=== PATIENT | male | born 1995 | race African-American/Black ===

== ENCOUNTER 2018-04-12 17:40 | Emergency (ER) | payer OTHER ==
[~2018-04-12] VITALS: Ht 170.2 cm; Wt 59.1 kg
[2018-04-12 20:43] VITALS: BP 116/64
== END 2018-04-12 20:50 | disposition home or self-care (01) ==
LOC: M ED 17:40
DX: L72.3 Sebaceous cyst (principal); F17.210 Nicotine dependence, cigarettes, uncomplicated

== ENCOUNTER → 2018-04-28 | Outpatient (CLI) | payer OTHER ==
[2018-04-28 17:29] LABS: HEMATOCRIT 44.8 % (42.0-52.0); HEMOGLOBIN 15.2 g/dl (13.5-17.5); MEAN CORPUSCULAR HEMOGLOBIN 28.5 pg (27.0-33.0); MEAN CORPUSCULAR HGB CONC 33.9 g/dl (32.0-36.5); MEAN CORPUSCULAR VOLUME 83.9 fl (80.0-96.0); PLATELET COUNT, AUTOMATED 278 10^3/uL (150-450); RED BLOOD COUNT 5.34 10^6/uL (4.30-6.10); WHITE BLOOD COUNT 7.8 10^3/uL (4.0-10.0)
[2018-04-28 17:40] LABS: INR 1.02; PROTHROMBIN TIME 13.5 SECONDS (12.1-14.4)
[2018-04-28 17:41] LABS: PARTIAL THROMBOPLASTIN TIME 31.2 SECONDS (25.4-37.6)
[2018-04-28 17:44] LABS: BLOOD UREA NITROGEN 9 MG/DL (7-18); CALCIUM LEVEL 9.1 MG/DL (8.5-10.1); CARBON DIOXIDE LEVEL 29 MEQ/L (21-32); CHLORIDE LEVEL 104 MEQ/L (98-107); CREATININE FOR GFR 0.98 MG/DL (0.70-1.30); GLOMERULAR FILTRATION RATE > 60.0 (>60); GLUCOSE, FASTING 76 MG/DL (70-100); POTASSIUM SERUM 4.1 MEQ/L (3.5-5.1); SODIUM LEVEL 142 MEQ/L (136-145)
== END ==
LOC: M SMT 14:50
PROVIDERS: ATTEND Urology
DX: Z01.818 Encounter for other preprocedural examination (principal); L72.9 Follicular cyst of the skin and subcutaneous tissue, unspecified
CPT/HCPCS: 36415; 80048; 85027; 85610; 85730; G0463

== ENCOUNTER 2018-05-04 10:48 | Day surgery (SDC) | payer OTHER ==
[~2018-05-04] VITALS: Ht 172.7 cm; Wt 59.0 kg
[~2018-05-04 10:48] MED LIST: BACITRACIN OINT 30GM As Ordered ONE
[2018-05-04] MEDS ORDERED: MIDAZOLAM INJ 2 MG/2 ML VIAL (J2250) As Ordered ONE (13:37)
[2018-05-04] MEDS ORDERED: PROPOFOL 200 MG/20 ML VIAL As Ordered ONE ×2 (13:37→14:18)
[2018-05-04] MEDS ORDERED: fentaNYL 100 MCG/2 ML INJECTION (J3010) As Ordered ONE ×2 (13:37→13:41)
[2018-05-04] MEDS ORDERED: LIDOCAINE 2% INJ 100 MG/5 ML SDV (FOR ANES.) As Ordered ONE (13:37)
[2018-05-04] MEDS ORDERED: dexameTHASONE 4 MG/ML 1ML VIAL (J1100) As Ordered ONE (13:41)
[2018-05-04] MEDS ORDERED: ONDANSETRON 4MG/2ML VIAL (J2405) As Ordered ONE (13:41)
[2018-05-04] MEDS ORDERED: LIDOCAINE 1% SDV INJ 30 ML VIAL As Ordered ONE (14:01)
[2018-05-04] MEDS ORDERED: BUPIVACAINE HCL 0.25% 30 ML VIAL As Ordered ONE (14:01)
[2018-05-04] MEDS ORDERED: PHENYLephrine HCL 500 MCG/5 ML (100MCG/ML) SYRINGE (J2370) As Ordered ONE (14:39)
[2018-05-04] MEDS ORDERED: ePHEDrine SULFATE 25 MG/5 ML(5MG/ML) SYRINGE As Ordered ONE (15:03)
[2018-05-04] MEDS ORDERED: fentaNYL 100 MCG/2 ML INJECTION (J3010) IV PRN (16:15)
[2018-05-04] MEDS ORDERED: HYDROMORPHONE HCL 0.5 MG/ 0.5 ML SYRINGE (J1170 PER 1) IV PRN (16:15)
[2018-05-04] MEDS ORDERED: PERCOCET 5MG/325MG TAB PO PRN ×2 (16:15)
[2018-05-04] MEDS ORDERED: LR 1,000 ML IV SCH (16:45)
[2018-05-04 17:34] VITALS: BP 140/71
--- NOTE | 2018-05-05 08:22 | RO ---
DATE OF PROCEDURE: 05/04/2018 PREPROCEDURE DIAGNOSIS: Penile and scrotal cysts. POSTPROCEDURE DIAGNOSIS: Penile and scrotal cysts. PROCEDURE: Excision of penile and scrotal cysts. SURGEON: Joey Amin MD SILK PRESSER: None. ANESTHESIA: General. OPERATIVE INDICATIONS: This is a 22-year-old male who presented to our office with complaint of subcutaneous penile and scrotal cysts. He wished to have them all removed, and he was therefore brought to the operating room today for that procedure. DESCRIPTION OF PROCEDURE: The patient was brought to the operating room and general anesthesia was induced. Prophylactic antibiotics were infused. He was then placed in supine position and prepped and draped in the usual sterile fashion. Of note, the patient had approximately 10 subcutaneous cysts measuring between 0.5 cm to 1.0 cm in size. Each of these cysts were then carefully dissected out from the subcutaneous tissues and then excised. Once all of them were completely excised, each incision was closed with interrupted #2-0 chromic sutures. Of note, these cysts appeared to likely be sebaceous. Once all the sutures were placed, dressings were applied and this ramon conclusion of procedures. The patient was then awakened from anesthesia and transported to the recovery room in stable condition. Estimated blood loss was 10 mL. Complications: None. Specimens: Penile and scrotal cysts. Plan: The patient will followup in clinic in a few weeks for a postoperative visit.
== END 2018-05-04 17:34 | disposition home or self-care (01) ==
LOC: M SDC 10:48
PROVIDERS: ATTEND Urology
DX: L72.9 Follicular cyst of the skin and subcutaneous tissue, unspecified (principal); F17.210 Nicotine dependence, cigarettes, uncomplicated
CPT/HCPCS: 11421; 88304; J0690; J1100; J2250; J2370; J2405; J3010